=== PATIENT | male | born 1980 | race Caucasian/White ===

== ENCOUNTER 2025-04-27 12:52 | Emergency (ER) | payer OTHER ==
[~2025-04-27] VITALS: Ht 170.2 cm; Wt 91.0 kg
[2025-04-27 13:00] VITALS: TEMP 36.7; O2SAT 99
[2025-04-27] MEDS ORDERED: LIDO-53 TP (16:20)
[2025-04-27] MEDS ORDERED: IBUP-2028 MT (16:20)
[2025-04-27] MEDS: KETOROLAC 30MG/ML VIAL IM ONE (16:30)
[2025-04-27] MEDS: LIDOCAINE 5% PATCH TOP SCH (16:42)
[2025-04-27 16:53] VITALS: BP 124/83; PULSE 84; RESP 16; O2SAT 99
== END 2025-04-27 17:10 | disposition home or self-care (01) ==
LOC: ER 12:52
DX: M25.512 Pain in left shoulder (principal); X50.0XXA Overexertion from strenuous movement or load, initial encounter; Y93.89 Activity, other specified; Y92.89 Other specified places as the place of occurrence of the external cause; Y99.0 Civilian activity done for income or pay
CPT/HCPCS: 99283; 73030; 96372; J1885